=== PATIENT | female | born 1995 | race African-American/Black ===

== ENCOUNTER 2019-05-03 13:55 | Emergency (ER) | payer SELFPAY ==
[~2019-05-03] VITALS: Ht 152.4 cm; Wt 81.6 kg
[2019-05-03 14:09] VITALS: BP_SYST 114
--- NOTE | 2019-05-03 16:15 | NUR ---
Patient to ER bed 4 to gown for evaluation. Side rails up. Report given to
--- NOTE | 2019-05-03 16:15 | NUR ---
ER at bedside examining patient.
--- NOTE | 2019-05-03 16:18 | NUR ---
RN introduces himself to the pt. pt is stable, looks well, and is smiling. pt stated she feels like chest cold coming on.
--- NOTE | 2019-05-03 16:30 | NUR ---
Patient given written and verbal discharge instructions and verbalizes understanding. ER MD discussed with patient the results and treatment provided. Patient in stable condition. ID arm band removed. Rx of prednisone and motrin given. Patient educated on pain management and to follow up with PMD. Pain Scale 0/10. Opportunity for questions provided and answered. Medication side effect fact sheet provided.
[2019-05-03 16:42] VITALS: BP_SYST 116
== END 2019-05-03 16:30 | disposition home or self-care (01) ==
LOC: SED 13:55
DX: R07.89 Other chest pain (principal); R42 Dizziness and giddiness
CPT/HCPCS: 93005; 99283